=== PATIENT | female | born 1975 | race Caucasian/White ===

== ENCOUNTER 2016-09-25 01:08 | Emergency (ER) | payer OTHER ==
[~2016-09-25 01:08] MED LIST: ALBUTEROL17 GM INH; CLARITIN10 MG PO; ERYC250 MG PO; LEVOTHYROXINE100 MCG PO; LORTAB 5/500 TA1 TA1 PO; MEDROL PO; PHENERGAN PO; [UNRECOGNIZED DRUG - REMARK]
[2016-09-25 01:24] LABS: URINE SOURCE CLEAN CATCH
[2016-09-25 01:30] LABS: URINE APPEARANCE CLOUDY; URINE BILIRUBIN NEG (NEG); URINE BLOOD NEG (NEG); URINE COLOR YELLOW; URINE GLUCOSE NEG (NEG); URINE KETONE TRACE (NEG); URINE LEUKOCYTE ESTERASE 2+ (NEG); URINE NITRATE NEG (NEG); URINE PROTEIN NEG (NEG); URINE SPECIFIC GRAVITY 1.028 (1.003-1.035)
[2016-09-25 01:33] LABS: CULTURE INDICATED? YES; URBCS1 AUWI 0-2 /[HPF] (0-2); URINE BACTERIA AUWI 2+ (NEGATIVE); URINE SQUAMOUS EPITHELIAL CELL OCC /[HPF]; UWBCS1 AUWI 50-100 (0-5)
[2016-09-25 01:54] LABS: URINE CRYSTALS CALCIUM OXALATE /[HPF]
[2016-09-27 01:07] LABS: CHLAMYDIA TRACH Not Detected (Not Detected); N GONOR Detected (Not Detected)
== END 2016-09-25 03:05 | disposition home or self-care (01) ==
LOC: CED 01:08
PROVIDERS: Emergency Medicine
DX: N76.0 Acute vaginitis (principal); F17.200 Nicotine dependence, unspecified, uncomplicated; Z87.442 Personal history of urinary calculi; Z98.51 Tubal ligation status
CPT/HCPCS: 81003; 87086; 87088; 87186; 87491; 87591; 87808; 87905; 96372; 99284; J0696

== ENCOUNTER 2017-02-17 17:12 | Emergency (ER) | payer OTHER ==
[~2017-02-17] VITALS: Ht 165.1 cm; Wt 68.0 kg
--- NOTE | ~2017-02-17 | CR63 ---
[facility] A Service of [facility] RADIOLOGY TEXT RESULTS PATIENT: LILIA MALDONADO LOCATION: [facility] : 77 UNIT #: [id number] AGE: [address]: Fariha Watkins SEX: F ORDER DR: [id number] [facility] [address] [place], [place] [address] [id number] MR#: [id number] Acc #: [id number] NAME: LILIA MALDONADO : 1975 SEX: F STUDY DATE/TIME: 02/17/2017 18:22 UNIT: [facility] ROOM: STUDY DESCRIPTION: CR Chest 2 View Attending Physician: Fariha Watkins P.A.-C. Ordering Physician: Fariha Watkins P.A.-C. Primary Care Physician: [facility] MEDICAL IMAGING REPORT This report is preliminary unless electronic signature is present EXAM Two-view chest 02/17/2017 INDICATION 41-year-old female with cough, congestion, shortness of air for a month, tobacco abuse 24 years. TECHNIQUE Two-view chest compared with 04/28/2009. FINDINGS PA and lateral examination of the chest upright shows a good expansion of the parenchyma with a normal distribution of the pulmonary vascularity. There is no indication of congestion, effusion, infiltrate, tumor, or nodular density. The pleural reflections and diaphragmatic contours are normal. The cardiac silhouette and mediastinal anatomy is within normal limits. IMPRESSION Normal chest. Dictated by... Seth Ramirez M.D. THIS IS AN ELECTRONICALLY VERIFIED REPORT Seth Ramirez M.D. at 02/18/2017 11:28 PM NOMI/sayra TD: 02/18/2017 09:52 JOB #: [id number] MEDICAL IMAGING REPORT [facility] A Service of [facility] RADIOLOGY TEXT RESULTS PATIENT: LILIA MALDONADO LOCATION: [facility] : 77 UNIT #: [id number] AGE: [address]: Fariha Watkins SEX: F ORDER DR: Page 1 of 1 COPY
== END 2017-02-17 19:15 | disposition home or self-care (01) ==
LOC: CFTX 17:12 → CED 17:12 → CFTX 18:08
DX: J40 Bronchitis, not specified as acute or chronic (principal); F17.210 Nicotine dependence, cigarettes, uncomplicated; E03.9 Hypothyroidism, unspecified; Z87.442 Personal history of urinary calculi; Z98.51 Tubal ligation status
CPT/HCPCS: 36415; 71020; 85379; 94640; 99284